=== PATIENT | male | born 1985 | race Caucasian/White ===

== ENCOUNTER → 2019-01-11 | Day surgery (SDC) | payer BC ==
[2019-01-08 09:03] VITALS: BMI 27.0
[~2019-01-11] MED LIST: LACTATED RINGERS 1,000 ML IV SCH; LIDOCAINE 1% 20 ML VIAL (10MG/ML) FOR IV START INTRADERMA ONE; MIDAZOLAM 2 MG/2 ML VIAL ONE; PROPOFOL 10 MG/ML 20 ML VIAL IV ONE; SODIUM CHLORIDE 0.9% 500 ML 500 ML IV ONE; fentaNYL (PF) 50 MCG/ML 2 ML AMP ONE
[2019-01-11 12:33] VITALS: RESP 16; TEMP 98.1
[2019-01-11 12:41] LABS: Glucose,Whole Blood 85 mg/dL (75-99)
--- NOTE | 2019-01-11 14:05 | P.PCN ---
Date of Procedure: 01/11/19 Description of Procedure: Brief history: Patient is a pleasant scheduled for an elective upper endoscopy as well as colonoscopy as a part of evaluation of GERD, change in bowel habits, diarrhea. Patient reports no prior EGD or colonoscopy. Long-standing history of reflux for which she takes Prevacid daily. He reports breakthrough symptoms even on Prevacid. He reports that loose over the pastyear. Predominantly in the mornings and after eating. No blood per rectum reported. Only some abdominal cramping with bowel movements. No nocturnal symptoms. Denies any family history of colon cancer or IBD. Procedure performed: Esophagogastroduodenoscopy with biopsy Colonoscopy with biopsy Estimated blood loss: Minimal. Preoperative diagnosis: Anesthesia: MAC Procedure: After informed consent was obtained from the patient was brought into the endoscopy unit and IV sedation was administered by anesthesia under continuous monitoring. Initially upper endoscopy was done. The Olympus GF 190 video endoscope was inserted inserted into the mouth and esophagus intubated without any difficulty and was gradually advanced into the stomach and duodenum and carefully examined. The bulb and second part of the duodenum appeared normal, with biopsies taken. The scope was then withdrawn into the stomach adequately insufflated with air and upon careful examination the antrum and body, cardia and fundus appeared grossly normal except for some mild scattered erythema in the antrum and body suggestive of mild gastritis with biopsies taken. 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 The scope was then withdrawn into the esophagus. The GE junction was located at 42 cm to the incisors and biopsied. It appeared regular with no erythema erosions or ulcerations. Rest of the esophagus appeared normal. Patient tolerated the procedure well. At this time the patient continued to remain sedation. Initial digital rectal examination was normal. Olympus CF 190 video colonoscope was then inserted into the rectum and gradually advanced to the cecum without any difficulty. The terminal ileum was intubated and appeared normal and biopsies were taken. Careful examination was performed as the scope was gradually being withdrawn. The prep was excellent. The cecum, ascending colon, transverse colon, descending colon, sigmoid colon and rectum appeared normal, with random biopsies taken of the right and left colon. Mild internal hemorrhoids. Retroflexion was performed in the rectum and no lesions were noted. Patient tolerated the procedure well. Impression: 1. Mild gastritis antrum and body biopsied. Duodenal biopsies. 2 diminutive gastric polyps biopsied. GE junction biopsies. 2. Normal-appearing colon from rectum to cecum and normal appearing terminal ileum with biopsies taken of the terminal ileum, left colon and right colon. Mild internal hemorrhoids. Recommendations: Findings of this examination were discussed with the patient. Okay to resume diet. Await pathology from biopsies. Recommend screening colonoscopy at the age of 45, signs or symptoms which warrant develop or pathology noted on colonoscopy. Continue Prevacid daily.
[2019-01-11 14:34] VITALS: BP 147/92; PULSE 53
== END ==
LOC: ORWHC2ENDO 11:52
PROVIDERS: ATTEND Internal Medicine
DX: K64.8 Other hemorrhoids (principal); K29.50 Unspecified chronic gastritis without bleeding; K31.7 Polyp of stomach and duodenum; R19.4 Change in bowel habit; R19.7 Diarrhea, unspecified; Z79.1 Long term (current) use of non-steroidal anti-inflammatories (NSAID); Z79.899 Other long term (current) drug therapy; Z87.891 Personal history of nicotine dependence
CPT/HCPCS: 88305; 45380; 43239; J2250; J3010; J2704